=== PATIENT | male | born 1950 | race Caucasian/White ===

== ENCOUNTER 2019-06-29 08:59 | Day surgery (SDC) | payer OTHER, MEDICARE ==
[2019-06-26 14:47] VITALS: BMI 22.2
[2019-06-29] MEDS ORDERED: PROPOFOL 20 ML ONE ×2 (10:47)
[2019-06-29] MEDS ORDERED: LIDOCAINE HCL/PF 2% SDV 5ML VIAL ONE (10:48)
[2019-06-29 15:52] VITALS: TEMP 98.2
[2019-06-29 16:00] VITALS: BP 136/71; PULSE 57
--- NOTE | 2019-07-01 17:11 | PATH ---
Surgical Pathology Report Patient Name: ALEX AQUINO [facility]. Rec. #: [id number] /Age/Gender: 1950 (Age: 69) / M Account: [id number] Location: [facility] Taken: 06/29/2019 Received: 06/29/2019 Reported: 07/01/2019 Physicians: Danny Bey M.D. Specimen(s) Received SPLENIC FLEXURE Clinical History Screening Postoperative diagnosis: Diverticulosis, colon polyp Final Diagnosis COLON, SPLENIC FLEXURE, POLYPECTOMY : TUBULAR ADENOMA. Electronically Signed Gerri Bautista M.D. Gross Description Received in formalin, labeled "polypectomy splenic flexure" is a moon, polypoid portion of soft tissue measuring 0.7 cm. in greatest dimension. The specimen is submitted in toto in one cassette. 06/30/2019 [facility]06/30/2019
== END 2019-06-29 12:00 | disposition home or self-care (01) ==
LOC: FASU-ENDO 08:59
PROVIDERS: ATTEND Internal Medicine Gastroenterology
PROC: 0DBL8ZX Excision of Transverse Colon, Via Natural or Artificial Opening Endoscopic, Diagnostic (ICD-10-PCS; principal; 2019-06-29 10:53)
DX: Z12.11 Encounter for screening for malignant neoplasm of colon (principal); D12.3 Benign neoplasm of transverse colon; K57.30 Diverticulosis of large intestine without perforation or abscess without bleeding
CPT/HCPCS: 88305-TC

== ENCOUNTER 2023-01-02 08:15 | Day surgery (SDC) | payer OTHER, MEDICARE ==
[2022-12-26 16:14] VITALS: BMI 21.8
[2023-01-02] MEDS ORDERED: GLUCAGON 1 MG KIT ONE (09:53)
[2023-01-02] MEDS ORDERED: PROPOFOL 60 ML ONE (10:05)
[2023-01-02 10:32] VITALS: TEMP 98
[2023-01-02 10:35] VITALS: BP 139/89; PULSE 52; RESP 20
== END 2023-01-02 11:00 | disposition home or self-care (01) ==
LOC: FASU-ENDO 08:15
PROVIDERS: ATTEND Internal Medicine Gastroenterology
PROC: 0DBN8ZX Excision of Sigmoid Colon, Via Natural or Artificial Opening Endoscopic, Diagnostic (ICD-10-PCS; 2023-01-02)
PROC: 0DB98ZX Excision of Duodenum, Via Natural or Artificial Opening Endoscopic, Diagnostic (ICD-10-PCS; 2023-01-02)
PROC: 0DB68ZX Excision of Stomach, Via Natural or Artificial Opening Endoscopic, Diagnostic (ICD-10-PCS; 2023-01-02)
PROC: 0DBL8ZX Excision of Transverse Colon, Via Natural or Artificial Opening Endoscopic, Diagnostic (ICD-10-PCS; principal; 2023-01-02 09:39)
DX: Z12.11 Encounter for screening for malignant neoplasm of colon (principal); D12.2 Benign neoplasm of ascending colon; D12.5 Benign neoplasm of sigmoid colon; K57.30 Diverticulosis of large intestine without perforation or abscess without bleeding; Z86.010 Personal history of colon polyps; K29.50 Unspecified chronic gastritis without bleeding
CPT/HCPCS: 82962; 88305-TC; 88342-TC